=== PATIENT | female | born 1985 | race Two or more races ===

== ENCOUNTER 2022-05-05 04:12 | Day surgery (SDC) | payer OTHER ==
[2022-05-03 17:09] VITALS: BMI 30.7
[2022-05-05] MEDS ORDERED: PROPOFOL 20 ML ONE (07:22)
[2022-05-05] MEDS ORDERED: MIDAZOLAM HCL 2 MG/2 ML SINGLE DOSE VIAL ONE (07:22)
[2022-05-05] MEDS ORDERED: LIDOCAINE HCL/PF 2% SDV 5ML VIAL ONE (07:27)
[2022-05-05] MEDS ORDERED: ROCURONIUM BROMIDE 50 MG/5 ML SYRINGE ONE ×2 (07:27→08:37)
[2022-05-05] MEDS ORDERED: ceFAZolin SODIUM 1 GM VIAL IVPB ONE (08:08)
[2022-05-05] MEDS ORDERED: ONDANSETRON 4 MG/2 ML VIAL IVPUSH PRN (08:09)
[2022-05-05] MEDS ORDERED: oxyCODONE HCL 5 MG TABLET PO PRN (08:09)
[2022-05-05] MEDS ORDERED: LACTATED RINGERS SOLUTION 1,000 ML IV SCH (08:15)
[2022-05-05] MEDS ORDERED: GLYCOPYRROLATE 0.2 MG/1 ML VIAL ONE (08:40)
[2022-05-05] MEDS ORDERED: NEOSTIGMINE METHYLSULFATE 0.5 MG/ML - 10 ML MDV ONE (08:41)
[2022-05-05] MEDS ORDERED: ACETAMINOPHEN INJECTION 100 ML IVPB ONE (08:46)
[2022-05-05] MEDS ORDERED: BUPIVACAINE HCL/PF 0.5% (5MG/ML) 10 ML VIAL ONE (08:53)
[2022-05-05] MEDS ORDERED: KETOROLAC TROMETHAMINE 30 MG/1 ML VIAL ONE (08:54)
[2022-05-05] MEDS ORDERED: BUPIVACAINE HCL/PF 0.5% (5MG/ML) 10 ML VIAL IJ ONE (08:57)
[2022-05-05] MEDS ORDERED: SUGAMMADEX SODIUM 200 MG/2 ML VIAL ONE (09:04)
[2022-05-05] MEDS ORDERED: IBUPROFEN 600 MG TABLET (FP) PO PRN (09:18)
[2022-05-05] MEDS ORDERED: ACETAMINOPHEN 325 MG TABLET (FP) PO PRN (09:18)
[2022-05-05 11:30] VITALS: RESP 18
[2022-05-05 14:45] VITALS: BP 98/57; PULSE 64; TEMP 97.9
== END 2022-05-05 13:50 | disposition home or self-care (01) ==
LOC: JASUSAT 04:12 → JASU-SURG 04:12 → JASUSAT 13:50
PROVIDERS: ATTEND Obstetrics & Gynecology
PROC: 0UT74ZZ Resection of Bilateral Fallopian Tubes, Percutaneous Endoscopic Approach (ICD-10-PCS; principal; 2022-05-05 07:30)
PROC: 0UC98ZZ Extirpation of Matter from Uterus, Via Natural or Artificial Opening Endoscopic (ICD-10-PCS; 2022-05-05 07:30)
DX: T83.32XA Displacement of intrauterine contraceptive device, initial encounter (principal); Z30.2 Encounter for sterilization
CPT/HCPCS: 88300-TC; 88302-TC; 94760